=== PATIENT | male | born 2000 | race Caucasian/White ===

== ENCOUNTER 2019-03-15 22:24 | Observation (INO) ==
[2019-03-15] MEDS ORDERED: ONDANSETRON INJ 2 MG/ML 2 ML VIAL IV STA (22:52)
[2019-03-15] MEDS ORDERED: KETOROLAC TROMETHAMINE 15 MG/ML VIAL IV STA (22:52)
[2019-03-15] MEDS ORDERED: SODIUM CHLORIDE 0.9% 1000ML 1,000 ML IV SCH (23:00)
[2019-03-15 23:17] LABS: Basophils # (auto) 0.02 K/uL (0-0.2); Basophils % (auto) 0.1 %; Hematocrit (blood only) 43.5 % (42-52); Hemoglobin 15.3 g/dL (14.0-18.0); Immature Granulocytes # (auto) 0.04 K/uL (0.00-0.02); Immature Granulocytes % (auto) 0.2 %; Lymphocytes # (auto) 0.77 K/uL (1.2-3.4); Lymphocytes % (auto) 4.5 %; Mean Corpuscular Hgb Conc 35.2 g/dL (32-36); Mean Corpuscular Volume 89.3 fL (80-100); Mean Platelet Volume 9.2 fL (7.4-10.4); Monocytes # (auto) 0.51 K/uL (0.11-0.59); Neutrophils % (auto) 92.2 %; Platelet Count 238 K/uL (130-400); RDW Standard Deviation 38.7 fL (36.4-46.3); Red Blood Count 4.87 M/uL (4.7-6.1); White Blood Count 17.04 K/uL (4.8-10.8)
[2019-03-15 23:48] LABS: Albumin Level 4.3 gm/dl (3.4-5.0); Calcium 9.1 mg/dl (8.5-10.1); Creatinine Clr Calc Pharmacy 115.4 ml/min; Est GFR (African American) 117.9; Est GFR (Non-African American) 101.7; Potassium 4.2 mmol/L (3.5-5.1)
[2019-03-15 23:50] LABS: Albumin Globulin Ratio 1.3 (0.9-2); Bilirubin,Total 1.2 mg/dl (0.2-1); Globulin 3.4 gm/dl (2.5-4.0); Total Protein 7.7 gm/dl (6.4-8.2)
[2019-03-16] MEDS ORDERED: IOVERSOL 100ml IV PRN (00:28)
[2019-03-16 01:12] LABS: Appearance Urine Clear (Clear); Bacteria Urine Automated Negative (Negative); Bilirubin Urine Negative (Negative); Blood Urine 2+ (Negative); Color Urine Yellow; Glucose Urine UA Negative (Negative); Leukocyte Esterase Urine Negative (Negative); Nitrite Urine Negative (Negative); Protein Urine Negative (Negative); Specific Gravity Urine 1.045 (1.000-1.030); Urobilinogen Urine Negative (Negative)
[2019-03-16] MEDS ORDERED: cefOXitin 2,000 MG/60 ML BAG IV STA (01:18)
[2019-03-16 01:19] LABS: Ketones Urine 3+ (Negative)
--- NOTE | 2019-03-16 01:44 | Emergency Department Note ---
History of Present Illness General Chief complaint: Abdominal Pain Stated complaint: VOMITING, STOMACH HURTS History of Present Illness Maximum Pain Intensity: 7 This 18-year-old presents to the ER complaining of vomiting and abdominal pain Location: Periumbilical Quality: Crampy Severity: Moderate Duration: Today Timing: Started this morning Context: Pain got worse and patient came in Modifying factors: better with rest; worse with palpation Patient denies chest pain, dyspnea, diarrhea, back pain, urinary symptoms. He is unsure if he ate bad pizza. Home Medications Home Medications Medication Instructions Recorded Confirmed Type No Known Home Medications 03/15/19 03/15/19 History Allergies Allergy/AdvReac Type Severity Reaction Status Date / Time Penicillins Allergy Hives Verified 03/15/19 23:13 Past Med/Surg History Medical History No acute medical problems Social History Preferred Language: Vincentian Feels Safe at Home: Yes Smoking Status: Never smoker Review of Systems All systems reviewed & are unremarkable except as noted in HPI & below Physical Exam Vital Signs Vital Signs - 24 hr 03/15/19 22:26 03/16/19 00:24 Temperature 36.7 C Temperature Source Oral Sepsis Recent Fever Within 48 Hours No Sepsis New/Unexplained Change in Mental Status No Sepsis Action Taken by Nursing No Action Required Pulse Rate 109 H Pulse Rate [Left Radial] 81 Respiratory Rate 16 18 Respiratory Depth Normal Blood Pressure 118/65 Blood Pressure [Left Arm] 119/61 Blood Pressure Mean 82 Blood Pressure Mean [Left Arm] 80 Pulse Oximetry 99 95 Oxygen Delivery Method Room Air VITALS: Vitals are noted on the nurse's note and reviewed by myself. Vital signs stable. GENERAL: Pleasant male, in no acute distress, nondiaphoretic, well-developed well-nourished. SKIN: The skin was without rashes, erythema, edema, or bruising. There is no tenting of the skin. Capillary reflex less than 2 seconds. HEAD: Normocephalic atraumatic. EARS: External auditory canals clear, tympanic membranes pearly ramirez without erythema or effusion bilaterally. EYES: Pupils equal round and reactive to light and accommodation. Conjunctivae without injection, sclerae without icterus. Extraocular movements intact. NOSE: Patent, turbinates without inflammation or discharge. MOUTH: Mucous membranes moist. Pharynx without erythema or exudate. Uvula mid line. Airway patent. Tongue does not deviate. NECK: Supple without nuchal rigidity. No lymphadenopathy. No thyromegaly. Cervical spine is nontender. No JVD. HEART: Regular rate and rhythm without murmurs gallops or rubs. LUNGS: Clear to auscultation bilaterally without wheezes, rales or rhonchi. No retractions or accessory muscle use. ABDOMEN: Positive bowel sounds x 4. Normal tympanic percussion. Soft, tender to palpation right lower quadrant, without masses or organomegaly. King sign negative. No guarding or rebound tenderness. No CVA tenderness MUSCULOSKELETAL: No muscle atrophy, erythema, or edema noted. NEURO: Patient was alert and oriented to person place and time. Normal sensation to light and sharp touch. No focal neurological deficits. Course Administered Medications Ioversol (Optiray 320 100ml) 93 ml IV ONCE PRN PRN Reason: Interaction Checking Stop: 03/20/19 00:27 Last Admin: 03/16/19 00:29 Dose: 1 ml Documented by: [id number] Discontinued Medications Sodium Chloride (Nss 1000ml) 1,000 mls @ 999 mls/hr IV .Q1H1M KEN Stop: 03/16/19 00:00 Last Infusion: 03/16/19 00:30 Dose: 0 mls/hr Documented by: [id number] Admin: 03/15/19 23:12 Dose: 999 mls/hr Documented by: [id number] Ketorolac Tromethamine (Toradol) 10 mg IV NOW STA Stop: 03/15/19 22:53 Last Admin: 03/15/19 23:12 Dose: 10 mg Documented by: [id number] Ondansetron HCl (Zofran) 4 mg IV NOW STA Stop: 03/15/19 22:53 Last Admin: 03/15/19 23:12 Dose: 4 mg Documented by: [id number] Medical Decision Making Medical Records Attestation: I reviewed the patient's medical records. Home Medications Current Medication List: was personally reviewed by me Laboratory Data Attestation: I reviewed the patient's lab results. Result diagrams: 03/15/19 23:06 03/15/19 23:06 Lab Results 03/15/19 03/15/19 03/16/19 Range/Units 23:06 23:06 00:15 WBC 17.04 H (4.8-10.8) K/uL RBC 4.87 (4.7-6.1) M/uL Hgb 15.3 (14.0-18.0) g/dL Hct 43.5 (42-52) % MCV 89.3 (80-100) fL MCH 31.4 (25-34) pg MCHC 35.2 (32-36) g/dL RDW Std Deviation 38.7 (36.4-46.3) fL RDW Coeff of Marisel 12.0 (11.5-14.5) % Plt Count 238 (130-400) K/uL MPV 9.2 (7.4-10.4) fL Immature Gran % (Auto) 0.2 % Neut % (Auto) 92.2 % Lymph % (Auto) 4.5 % Grady % (Auto) 3.0 % Eos % (Auto) 0.0 % Baso % (Auto) 0.1 % Immature Gran # (Auto) 0.04 H (0.00-0.02) K/uL Neut # (Auto) 15.70 H (1.4-6.5) K/uL Lymph # (Auto) 0.77 L (1.2-3.4) K/uL Grady # (Auto) 0.51 (0.11-0.59) K/uL Eos # (Auto) 0.00 (0-0.5) K/uL Baso # (Auto) 0.02 (0-0.2) K/uL Sodium 139 (136-145) mmol/L Potassium 4.2 (3.5-5.1) mmol/L Chloride 104 (98-107) mmol/L Carbon Dioxide 27 (21-32) mmol/L Anion Gap 8.0 (3-11) BUN 17 (7-18) mg/dl Creatinine 1.05 (0.6-1.4) mg/dl Est Cr Clr Drug Dosing 115.4 ml/min Est GFR ( Amer) 117.9 Est GFR (Non-Af Amer) 101.7 BUN/Creatinine Ratio 16.0 (10-20) Glucose 127 H (70-99) mg/dl Calcium 9.1 (8.5-10.1) mg/dl Total Bilirubin 1.2 H (0.2-1) mg/dl AST 18 (15-37) U/L ALT 20 (12-78) U/L Alkaline Phosphatase 71 (45-117) U/L Total Protein 7.7 (6.4-8.2) gm/dl Albumin 4.3 (3.4-5.0) gm/dl Globulin 3.4 (2.5-4.0) gm/dl Albumin/Globulin Ratio 1.3 (0.9-2) Lipase 68 L (73-393) U/L Urine Color Yellow Urine Appearance Clear (Clear) Urine pH 7.0 (4.5-7.5) Ur Specific [place] 1.045 H (1.000-1.030) Urine Protein Negative (Negative) Urine Glucose (UA) Negative (Negative) Urine Ketones 3+ H (Negative) Urine Blood 2+ H (Negative) Urine Nitrite Negative (Negative) Urine Bilirubin Negative (Negative) Urine Urobilinogen Negative (Negative) Ur Leukocyte Esterase Negative (Negative) Urine WBC (Auto) 1-5 (0-5) /hpf Urine RBC (Auto) 10-30 H (0-4) /hpf U Hyaline Cast (Auto) 1-5 (0-5) /lpf U Epithel Cells (Auto) 5-10 H (0-5) /lpf Urine Bacteria (Auto) Negative (Negative) Imaging Data Attestation: I personally reviewed and interpreted this imaging study as follows: MDM Narrative Prior records/ancillary studies reviewed. Triage Nursing notes reviewed. Additional history obtained from family. The patient's history was concerning for abdominal pain. Differential diagnosis: Etiologies such as appendicitis, diverticulitis, PUD, biliary pathology, UTI, pancreatitis, obstruction, mesenteric ischemia, aortic pathology, infections, inflammatory bowel disease, renal colic, as well as others were entertained. Physical examination findings: As above. ER treatment provided: IV fluids, Toradol, Zofran, Mefoxin On reassessment the patient felt better. Diagnostics interpreted by me: The labs revealed leukocytosis Imaging studies: CT ABDOMEN & PELVIS With Contrast: Exam is limited by paucity of mesenteric fat though findings are suspicious for appendicitis. What is believed to represent the appendix has thick espinal, opacified lumen and measures about 1 cm in caliber, example images 64 and 65/2. Small amount of free fluid in the pelvis. L5 pars defects incidentally noted Radiologist: Hema Doyle M.D. Study ready at 00:37 and initial results transmitted at 01:03 Consultation: A consultation was placed with the surgeon, Dr. Caldwell and will evaluate the patient. The case was discussed and diagnostics were reviewed. The patient was evaluated in the ER for further treatment. Exam and history seem consistent with acute appendicitis. Surgery was consulted. He was placed on antibiotics. He states he gets rash with penicillin. He was placed n.p.o. Patient is agreeable treatment plan. By the evaluation outlined above emergent etiologies such as diverticulitis, PUD, biliary pathology, UTI, pancreatitis, obstruction, mesenteric ischemia, aortic pathology, inflammatory bowel disease, renal colic, as well as others were deemed relatively unlikely. The pt informed about the findings as listed above. All questions were answered and pleased with the treatment. Case reviewed with my attending The chart was completed utilizing [employer] Speech voice recognition software. Grammatical errors, random word insertions, pronoun errors, and incomplete sentences are an occassional consequence of this system due to software limitations, ambient noise, and hardware issues. Any formal questions or tram rns about the content, text, or information contained within the body of this dictation should be directly addressed to the physician food service assistant for clarification. Impression & Plan Acute appendicitis Discharge Plan Visit Data Chief Complaint: Abdominal Pain Stated Complaint: VOMITING, STOMACH HURTS ED Provider: Enio Beyer ED Midlevel Provider: Viki Fernández Discharge Problem: Acute appendicitis Patient Disposition: Being Evaluated by Surgeon Condition: Good Forms Stand Alone Forms: My [employer] Prescriptions Prescriptions: No Action No Known Home Medications RF: 0 Referrals Referrals: PCP,NO [Primary Care Provider] -
[2019-03-16] MEDS ORDERED: BUPIVACAINE/EPINEPHRINE 0.5% MPF 1:200,000 30 ML VIAL ONE (02:02)
--- NOTE | 2019-03-16 02:09 | History & Physical Report ---
Date of Service March 16, 2019 Assessment & Plan (1) Acute appendicitis: IV mefoxin Consent obtained for lap appendectomy to OR tonight Acute appendicitis type: with localized peritonitis Appendicitis abscess presence: without abscess Appendicitis gangrene presence: unspecified whether gangrene present Appendicitis perforation presence: without perforation Qualified Code(s): K35.30 - Acute appendicitis with localized peritonitis, without perforation or gangrene Present on Admission?: Yes History of Present Illness Primary Care Provider: NO PCP This 18-year-old presents to the ER complaining of vomiting and periumbilical abdominal pain. HE describes it as crampy and moderate in intensity. It began yesterday in the AM. He denies chest pain, dyspnea, diarrhea, back pain, u rinary symptoms. A CT scan shows acute appendicitis. Allergies Allergy/AdvReac Type Severity Reaction Status Date / Time Penicillins Allergy Hives Verified 03/15/19 23:13 Home Medications Home Medications Medication Instructions Recorded Confirmed Type No Known Home Medications 03/15/19 03/15/19 History Past Med/Surg History Medical History No acute medical problems Social History Preferred Language: Syrian Feels Safe at Home: Yes Smoking Status: Never smoker Review of Systems + anorexia; no fever and no chills no diplopia and no eye pain no ear pain, no ear discharge, no nasal congestion, no epistaxis and no dental pain no cough and no dyspnea no chest pain and no dyspnea + abdominal pain and + nausea; no hematemesis and no change in bowel habits no dysuria and no difficulty urinating no back pain and no neck pain no rash and no lesions no localized weakness and no generalized weakness no behavioral changes and no depression no problem reported no problem reported no problem reported Physical Exam Constitutional: well developed and well nourished; no acute distress Eyes: PERRL, conjunctivae normal, anicteric sclerae ENMT: external ear and nose normal, oropharynx normal Neck: trachea midline; neck nontender Respiratory: normal respiratory effort Auscultation: lungs clear to auscultation bilaterally Cardiovascular: Rate/Rhythm: regular rate and regular rhythm Heart Sounds: normal S1 and normal S2 Gastrointestinal (Abdomen): Inspection/Auscultation: abdomen normal to inspection and normal bowel sounds; abdomen not distended Percussion/Palpation: + abdomen tender and + guarding Musculoskeletal: Head/Neck/Chest: normocephalic, head atraumatic and neck supple Skin: no rashes, warm and dry Neurologic: moves all extremities Psychiatric: Orientation: alert and oriented x 3 Lymphatic: no lymphadenopathy ASA Classification ASA ASA1E Results & Data Vital Signs (Past 12 Hours) Vital Signs Temp Pulse Pulse Resp BP BP Pulse Ox 03/16/19 00:24 81 18 119/61 95 03/15/19 22:26 36.7 C 109 H 16 118/65 99 Code Status & VTE Plan Code Status Full Code VTE Prophylaxis Plan VTE Prophylaxis will be ordered: Yes
--- NOTE | 2019-03-16 02:11 | Anesthesiology Consultation ---
Date of Service March 16, 2019 Assessment & Plan Chart Review Chart Review: Acceptable Risk for Surgery and Patient NOT seen in Pre Admission Testing Consults Requested none ASA ASA1E Proposed Anesthesia Anesthesia Type: General Risk / Benefits Reviewed With: PT / POA / Parent / Guardian, Accepts Plan and Informed Consent Obtained History Surgery Operation Date: 03/16/19 02:40 Proposed Procedures p Laparoscopic Appendectomy - Gregory Caldwell MD Height/Weight Height: 6 ft 2 in Weight: 72.7 kg Allergies Allergy/AdvReac Type Severity Reaction Status Date / Time Penicillins Allergy Hives Verified 03/15/19 23:13 Medications Home Medications Medication Instructions Recorded Confirmed Last Taken No Known Home Medications 03/15/19 03/15/19 Unknown Active Medications Generic Name Dose Route Start Last Admin Trade Name Freq PRN Reason Stop Dose Admin Ioversol 93 ml 03/16/19 00:28 03/16/19 00:29 Optiray 320 100ml IV 03/20/19 00:27 1 ml ONCE PRN Administration Interaction Checking NPO Date Last Intake of Fluids: 03/15/19 Time Last Intake of Fluids: 14:30 Date Last Intake of Solids: 03/15/19 Time Last Intake of Solids: 11:00 Past Medical History Medical History No acute medical problems Exercise / Class Metabolic Activity 1 > 8 Run/Swim/Ski/Tennis Past Anesthesia History No Hx of Anesthesia Complications and No Family Hx of Anesthesia Complications History of PONV No Hx of PONV and No Hx of Motion Sickness Social History Smoking Status: Never smoker Review of Systems no chest pain or sob Physical Exam Vital Signs Last Vital Signs Temp 36.7 C 03/15/19 22:26 Pulse 78 03/16/19 02:10 Resp 18 03/16/19 02:10 BP 121/77 03/16/19 02:10 Pulse Ox 95 03/16/19 00:24 ENMT Mouth: no TMJ abnormality and no dentition abnormality Thyromental Distance: > or= 3.5 Finger Breadths Mallampati Class: II Neck normal visual inspection Respiratory normal respiratory effort Auscultation: lungs clear to auscultation bilaterally Cardiovascular Rate/Rhythm: regular rate and regular rhythm Neurologic moves all extremities Psychiatric Orientation: alert and oriented x 3 Testing Laboratory Results 03/15/19 23:06 03/15/19 23:06 Urine Color Yellow 03/16/19 00:15 Urine Appearance Clear (Clear) 03/16/19 00:15 Urine pH 7.0 (4.5-7.5) 03/16/19 00:15 Ur Specific [place] 1.045 (1.000-1.030) H 03/16/19 00:15 Urine Protein Negative (Negative) 03/16/19 00:15 Urine Glucose (UA) Negative (Negative) 03/16/19 00:15 Urine Ketones 3+ (Negative) H 03/16/19 00:15 Urine Nitrite Negative (Negative) 03/16/19 00:15 Ur Leukocyte Esterase Negative (Negative) 03/16/19 00:15 Urine WBC (Auto) 1-5 /hpf (0-5) 03/16/19 00:15 Urine RBC (Auto) 10-30 /hpf (0-4) H 03/16/19 00:15 U Hyaline Cast (Auto) 1-5 /lpf (0-5) 03/16/19 00:15 U Epithel Cells (Auto) 5-10 /lpf (0-5) H 03/16/19 00:15 Urine Bacteria (Auto) Negative (Negative) 03/16/19 00:15
[2019-03-16] MEDS ORDERED: LABETALOL HCL IV 5 MG/ML 20ML IV PRN (02:14)
[2019-03-16] MEDS ORDERED: MEPERIDINE HCL 25 MG/ML CARP IV PRN (02:14)
[2019-03-16] MEDS ORDERED: ePHEDrine sulfate 50 MG/ML AMP IV PRN (02:14)
[2019-03-16] MEDS ORDERED: HYDROmorphone INJ 1 MG/ML SYRINGE IV PRN (02:14)
[2019-03-16] MEDS ORDERED: ONDANSETRON INJ 2 MG/ML 2 ML VIAL IV PRN ×2 (02:14→04:16)
[2019-03-16] MEDS ORDERED: fentaNYL citrate 100 MCG/2 ML VIAL IV PRN (02:14)
[2019-03-16] MEDS ORDERED: ATROPINE SULFATE 0.1 MG/ML 10ML SYR IV PRN (02:14)
[2019-03-16] MEDS ORDERED: PHENYLEPHRINE 100MCG/ML 5ML SYR IV PRN (02:14)
[2019-03-16] MEDS ORDERED: MIDAZOLAM HCL 1 MG/ML 2ML VIAL ONE (02:18)
[2019-03-16] MEDS ORDERED: LIDOCAINE HCL 2% 2 ML VIAL/AMP(20MG/ML) INFIL ONE (02:19)
[2019-03-16] MEDS ORDERED: fentaNYL citrate 100 MCG/2 ML VIAL ONE (02:19)
[2019-03-16] MEDS ORDERED: DEXAMETHASONE SOD INJ 4 MG/ML VIAL ONE (02:44)
[2019-03-16] MEDS ORDERED: PROPOFOL IV EMULSION 10 MG/ML 20 ML VIAL IV ONE (02:44)
[2019-03-16] MEDS ORDERED: SUCCINYLCHOLINE CHLORIDE 20 MG/ML 10 ML VIAL ONE (02:44)
[2019-03-16] MEDS ORDERED: ROCURONIUM BROMIDE 10 MG/ML 5 ML VIAL ONE (02:44)
[2019-03-16] MEDS ORDERED: GLYCOPYRROLATE 0.2 MG/ML VIAL ONE (02:45)
[2019-03-16] MEDS ORDERED: ONDANSETRON INJ 2 MG/ML 2 ML VIAL ONE (02:45)
[2019-03-16] MEDS ORDERED: NEOSTIGMINE METHYLSULFATE 5 MG/5 ML SYR ONE (02:45)
[2019-03-16] MEDS ORDERED: KETOROLAC 30 MG/ML VIAL ONE (02:55)
--- NOTE | 2019-03-16 03:08 | Post Operative Brief Note ---
Immediate Post Op Note v1 Date of Surgery March 16, 2019 Pre & Post Diagnosis Operation Date: 03/16/19 02:40 Pre-Op Diagnosis: Acute appendicitis. Post-Op Diagnosis: Acute appendicitis. Procedure Operation Date: 03/16/19 02:40 Actual Procedures p Laparoscopic Appendectomy - Gregory Caldwell MD Surgeon Gregory Caldwell MD Manufacturers Service Representative none Estimated Blood Loss 10 Findings Consistent with Post-Op Diagnosis
[2019-03-16] MEDS ORDERED: MEPERIDINE HCL 25 MG/ML CARP ONE (03:26)
--- NOTE | 2019-03-16 03:36 | Anesthesiology Progress Note ---
Date of Service March 16, 2019 Anesthesia Post Procedure Vital Signs Vital Signs: Temp Pulse Pulse Pulse Resp BP BP 03/16/19 03:20 36.3 C L 93 H 16 121/61 03/16/19 02:10 78 18 121/77 03/16/19 00:24 81 18 119/61 03/15/19 22:26 36.7 C 109 H 16 118/65 Pulse Ox 03/16/19 03:20 100 03/16/19 02:10 03/16/19 00:24 95 03/15/19 22:26 99 Pain Intensity Abdomen: Pain Intensity: 4 Transfer of Care Handoff Completed per policy Notes Mental Status: alert / awake / arousable Patient Amnestic to Procedure: Yes Nausea / Vomiting: adequately controlled Pain: adequately controlled Airway Patency, RR, SpO2: stable & adequate BP & HR: stable & adequate Hydration State: stable & adequate Anesthetic Complications: no major complications apparent and Pt Satisfied with anesthetic care
--- NOTE | 2019-03-16 03:50 | Operative Report ---
DATE OF OPERATION: 03/16/2019 PREOPERATIVE DIAGNOSIS: Acute appendicitis. POSTOPERATIVE DIAGNOSIS: Acute appendicitis. PROCEDURE PERFORMED: Laparoscopic appendectomy. SURGEON: Gregory Caldwell MD LEACH TANK TENDER: None. ANESTHESIA: General endotracheal with 0.5% Marcaine with epinephrine local, 20 mL. ESTIMATED BLOOD LOSS: 10 mL. DRAINS: None. COMPLICATIONS: None. PATHOLOGY: Appendix sent for pathologic evaluation. INDICATIONS FOR PROCEDURE: This is a 18-year-old male who came in with a day history of some abdominal pain. Underwent a complete workup where CT scan showed acute appendicitis. On exam, he had guarding in his right lower quadrant. We talked to him in detail and recommended a laparoscopic appendectomy. He understands the risks of reoperation, abscess requiring drainage, bleeding, wound problems, and potential ileus. He agreed and wished to proceed with the operation. DESCRIPTION OF PROCEDURE: The patient was taken to the OR and underwent excellent general endotracheal anesthesia. His abdomen was prepped and draped in normal sterile fashion. Transverse supraumbilical incision was made. Dissection was taken down to identify the fascia. Veress needle was inserted. Good pneumoperitoneum was achieved to 15 mmHg pressure. A visualized 11 port was then placed. A good diagnostic lap was performed. He had an obvious appendicitis in his right lower quadrant. A 5 suprapubic, a 5 right upper quadrant, and a 12 left lower quadrant ports were placed in normal fashion. The patient was placed head down and rolled to the left. The cecum was grasped with an atraumatic grasper from the right upper quadrant port. The appendix was grasped with the suprapubic port and a Harmonic scalpel was used to take down the mesoappendix. This was taken down to the base. The base of the appendix was then identified. A VIDHI 60 vascular load was then placed across the base of the appendix and the appendix was transected. This was brought out with an Endobag and sent for pathologic evaluation. Pneumoperitoneum was reestablished. A 500 mL of saline were then used to irrigate the right lower quadrant. There was no bleeding. Staple line looked intact. This fluid was then suctioned out. Ports were removed. Pneumoperitoneum was decompressed. A 0 Vicryl was used to close the 11 and 12 ports fascia. A 0.5% Marcaine with epinephrine local was used to create a local field block. Interrupted Vicryl was used to close the skin. Steri-Strips and benzoin were used to reinforce the incision. Sterile dressings were applied. The patient tolerated the procedure well with no complications, sent to postop recovery for a period of observation and will be discharged up to his room once he meets criteria. I attest to the content of the Intraoperative Record and any orders documented therein. Any exception s are noted below.
[2019-03-16] MEDS ORDERED: ACETAMINOPHEN 325 MG TAB PO PRN (04:16)
[2019-03-16] MEDS ORDERED: PROMETHAZINE HCL 12.5 MG in SODIUM CHLORIDE 0.9% 50 ML IV PRN (04:16)
[2019-03-16] MEDS ORDERED: MoRPHine SULFATE 4 MG/ML 1 ML CARP\\VIAL IV PRN (04:16)
[2019-03-16] MEDS ORDERED: LACTATED RINGER'S 1,000 ML IV SCH (04:16)
[2019-03-16] MEDS ORDERED: MoRPHine SULFATE 2 MG/ML CARP IV PRN (04:16)
[2019-03-16] MEDS ORDERED: OXYCODONE/ACETAMINOPHEN 5mg/325mg TAB PO PRN (04:16)
--- NOTE | 2019-03-16 06:17 | CT Scan Report ---
CT abd pelvis IV con only CLINICAL HISTORY: 18 years-old Male presenting with periumbilical pain. TECHNIQUE: Multidetector CT of the abdomen and pelvis was performed after the administration of intra venous contrast. IV contrast: 93 mL of Optiray 320. One or more dose lowering techniques were used co nsistent with the principles of ALARA (as low as reasonably achievable), including automatic exposure control, mA or kV adjustment to individual patient size, and/or use of iterative reconstruction. COMPARISON: None. CT DOSE (mGy.cm): The estimated cumulative dose is 297.84 mGy.cm. FINDINGS: Server Engineer topogram: Unremarkable. Lung bases: Normal heart size. No pericardial or pleural effusion. No focal infiltrate or nodule at t he lung bases. Liver: Normal morphology. No liver lesion. Patent hepatic vasculature. Biliary: No intrahepatic or extrahepatic biliary ductal dilatation. Normal gallbladder. Pancreas: Normal. Spleen: Normal. Adrenal glands: Normal. Kidneys and ureters: Normal. No hydronephrosis. Bladder: Incompletely evaluated secondary to underdistention. Pelvic organs: Prostate and seminal vesicles normal. Bowel: Appendix dilated measuring up to 10 mm in diameter along the right pelvic sidewall near the il iac bifurcation (series 3 images 315 and 320). Minimal if any associated periappendiceal inflammatory change at this time. No bowel obstruction. Peritoneal cavity: Trace free fluid in the pelvis, volume unexpected in a male patient. No free intra peritoneal gas. No loculated fluid collection to suggest abscess. Lymph nodes: No enlarged lymph nodes in the abdomen or pelvis. Vasculature: Aorta and IVC patent and normal in caliber. Abdominal wall: Normal. Musculoskeletal: Bilateral pars defects of L5. No anterolisthesis. IMPRESSION: 1. Early acute uncomplicated appendicitis. Surgical consultation is necessary. These findings were discussed with physician facility assistant Belia Fernández by Dr. Doyle on 03/16/2019 1:13 AM. Electronically signed by: Bridger Barnes M.D. 03/16/2019 6:16 AM
[2019-03-16] MEDS: OXYCODONE/ACETAMINOPHEN 5mg/325mg TAB PO PRN ×2 (07:32→11:33)
[2019-03-16] MEDS ORDERED: cefOXitin 2,000 MG in DEXTROSE 5% 50 ML IV SCH (10:00)
--- NOTE | 2019-03-16 10:07 | Surgery Progress Note ---
Date of Service March 16, 2019 Assessment & Plan (1) Acute appendicitis: doing well regular diet for lunch disharge Present on Admission?: Yes Subjective doing well Review of Systems Constitutional: no fever and no chills Respiratory: no dyspnea Cardiovascular: no chest pain Gastrointestinal: + abdominal pain (incisional); no nausea and no vomiting Physical Exam Constitutional: WD/WN, vitals as above Neck: trachea midline Respiratory: normal respiratory effort, lungs clear to auscultation Cardiovascular: RRR, no murmur, no edema Gastrointestinal (Abdomen): Inspection/Auscultation: normal bowel sounds; abdomen not distended Percussion/Palpation: + abdomen tender (mild) and abdomen soft Skin: no rashes, warm and dry Results & Data Vital Signs (Past 12 Hours) Vital Signs Temp Pulse Pulse Pulse Pulse Pulse Resp 03/16/19 07:27 36.5 C 55 L 18 03/16/19 06:09 36.7 C 80 18 03/16/19 05:07 36.6 C 58 L 16 03/16/19 04:35 36.4 C L 69 16 03/16/19 04:19 36.6 C 63 16 03/16/19 03:50 36.7 C 64 15 03/16/19 03:40 64 16 03/16/19 03:30 67 15 03/16/19 03:20 36.3 C L 93 H 16 03/16/19 02:10 78 18 03/16/19 00:24 81 18 03/15/19 22:26 36.7 C 109 H 16 BP BP Pulse Ox 03/16/19 07:27 116/66 97 03/16/19 06:09 101/59 L 96 03/16/19 05:07 109/66 98 03/16/19 04:35 103/56 L 99 03/16/19 04:19 108/63 98 03/16/19 03:50 106/56 L 99 03/16/19 03:40 111/55 L 100 03/16/19 03:30 113/61 100 03/16/19 03:20 121/61 100 03/16/19 02:10 121/77 03/16/19 00:24 119/61 95 03/15/19 22:26 118/65 99 (1) Acute appendicitis Acute appendicitis type: with localized peritonitis Appendicitis abscess presence: without abscess Appendicitis gangrene presence: unspecified whether gangrene present Appendicitis perforation presence: without perforation Qualified Code(s): K35.30 - Acute appendicitis with localized peritonitis, without perforation or gangrene
--- NOTE | 2019-03-18 08:32 | Discharge Summary ---
Date of Service March 18, 2019 Admission HPI Per Admitting Provider This 18-year-old presents to the ER complaining of vomiting and periumbilical abdominal pain. HE describes it as crampy and moderate in intensity. It began yesterday in the AM. He denies chest pain, dyspnea, diarrhea, back pain, urinary symptoms. A CT scan shows acute appendicitis. Principal Diagnosis Acute Appendicitis Discharge Data Allergies Allergy/AdvReac Type Severity Reaction Status Date / Time Penicillins Allergy Hives Verified 03/15/19 23:13 Consultations 03/16/19 01:40 ED Decision to Admit Stat Procedures Performed Operation Date: 03/16/19 02:40 Actual Procedures p Laparoscopic Appendectomy - Gregory Caldwell MD Ordered Studies 03/15/19 22:52 CT abd pelvis IV con only Urgent Hospital Course (1) Acute appendicitis: Patient was taken to operating room by Dr. Caldwell for laparoscopic appendectomy possible open. Patient found to have acute appendicitis without perforation or abscess. Patient tolerated procedure well and was transferred to recovery and then to medical/surgical floor for post operative care. Patient was started on IV fluids, PO and IV pain management, IV Zofran prn nausea, clear liquid diet, activity as tolerated, incentive spirometry, and scds. POD # 1 vitals stable, afebrile, incisional pain present and controlled, no n/v. Diet advanced to regular diet for lunch in which patient tolerated and was discharged home in stable condition. Total Time Total Time Spent Total Time Spent (In Minutes): 15 Total Time Includes: Examination of the Patient, Discharge Planning and Medication Reconciliation Discharge Plan Discharge Items Patient Disposition: Home - Self-Care Reason For Visit: ACUTE APPENDICITIS Discharge Diagnosis: Acute appendicitis Condition: Good Discharge Goals: Improve function Activity: As commented below Activity Comment: no strenous activity Lifting: No more than 25 pounds Bathing: No limitations Bathing Comment: begin tonight Sexual Activity: When tolerated Exercise/Sports: Wait until after follow-up appointment Driving/Machine Use: Resume 3 days after discharge Driving/Machine Use Comment: as long as not taking narcotics Weightbearing Comment: no restrictions Non-emergency contact: Primary Care Provider and Surgeon Call non-emergency contact if: you have any medication questions, your symptoms worsen, your pain is not controlled, your temperature is above 101.5, your wound has increased redness and your wound pain has increased Follow-up/Referrals: PCP,NO [Primary Care Provider] - Diet: Regular Addtl Provider Instructions: Call for follow-up with Dr Caldwell 2 weeks; [phone] Prescriptions: New oxycodone-acetaminophen 5-325 mg tablet 1 tab PO Q6H Qty: 30 RF: 0 No Action No Known Home Medications RF: 0 Stand-Alone Forms: [employer], [facility]Other Patient Handouts: Oxycodone Hydrochloride Acetaminophen Oral tablet Discharge Orders: Discharge Order (Routine); Ordered 03/16/19 Ordered By: Gregory Caldwell Admission Data Admit Date/Time: 03/16/19 04:14 Attending Provider: Gregory Caldwell Admit Provider: Gregory Caldwell Primary Care Provider: MIREILLE,BRAULIO Other Providers: Gregory Caldwell Service: Surgical Services Other Interventions: Discharge Summary Assessment (RN) Last Done: 03/16/19 11:56 DC Date/Time DO NOT enter until pt leaves facility: 03/16/19 14:00
== END 2019-03-16 14:00 | disposition home or self-care (01) ==
LOC: ED 22:24 → 3N 03-16 02:10 → OR 03-16 02:10
DX: K35.80 Unspecified acute appendicitis